=== PATIENT | female | born 1995 | race Caucasian/White ===

== ENCOUNTER 2020-11-11 18:08 | Emergency (ER) | payer OTHER, MEDICARE ==
[2020-11-11] MEDS ORDERED: ONDANSETRON ODT4 MG SL (21:00)
== END 2020-11-11 21:20 | disposition home or self-care (01) ==
LOC: ER1 18:08
DX: S62.666A Nondisplaced fracture of distal phalanx of right little finger, initial encounter for closed fracture (principal); S16.1XXA Strain of muscle, fascia and tendon at neck level, initial encounter; S20.211A Contusion of right front wall of thorax, initial encounter; R51.9 Headache, unspecified; F84.0 Autistic disorder; Z79.899 Other long term (current) drug therapy; Z88.8 Allergy status to other drugs, medicaments and biological substances; V49.50XA Passenger injured in collision with unspecified motor vehicles in traffic accident, initial encounter; Y92.410 Unspecified street and highway as the place of occurrence of the external cause
CPT/HCPCS: 29130; 70450; 71046; 72125; 73130; 99284